=== PATIENT | female | born 1995 | race Caucasian/White ===

== ENCOUNTER 2019-10-16 16:24 | Emergency (ER) | payer OTHER, SELFPAY ==
[2019-10-16] MEDS ORDERED: HYDROCODONE/APAP 10/325 TAB ONE (18:02)
[2019-10-16] MEDS ORDERED: CYCLOBENZAPRINE 10 MG TAB ONE (18:02)
--- NOTE | 2019-10-16 18:21 | EDPHYS ---
Physician Documentation [facility] Name: Maria E Yanes Age: 24 yrs Sex: Female : 1995 Arrival Date: 10/16/2019 Time: 16:30 Bed 30 Private MD: ED Physician Andrea Quiroz HPI: 10/16 17:52 This 24 yrs old Female presents to ER via Ambulatory with complaints of Back la1 Pain. 17:52 The patient presents with pain that is acute, with no known mechanism of injury. The la1 symptoms are located in the low back. Onset: The symptoms/episode began/occurred 2 day(s) ago. The pain radiates to the right leg. Associated signs and symptoms: Pertinent negatives: incontinence, numbness, tingling, urinary retention, weakness. The problem was sustained when lifting patient. Modifying factors: The patient symptoms are alleviated by nothing, the patient symptoms are aggravated by movement. Severity of symptoms: At their worst the symptoms were moderate. The patient has experienced similar episodes in the past. The patient has not recently seen a physician. 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 - Social history:: Smoking status: Patient/guardian denies using tobacco. - Ebola Screening: : Patient negative for fever greater than or equal to 101.5 degrees Fahrenheit, and additional compatible Ebola Virus Disease symptoms Patient denies exposure to infectious person Patient denies travel to an Ebola-affected area in the 21 days before illness onset No symptoms or risks identified at this time. ROS: 17:54 Constitutional: Negative for fever, chills, and weight loss, Eyes: Negative for injury, la1 pain, redness, and discharge, ENT: Negative for injury, pain, and discharge, Neck: Negative for injury, pain, and swelling, Cardiovascular: Negative for chest pain, palpitations, and edema, Respiratory: Negative for shortness of breath, cough, wheezing, and pleuritic chest pain, Abdomen/GI: Negative for abdominal pain, nausea, vomiting, diarrhea, and constipation, : Negative for injury, bleeding, discharge, and swelling, MS/Extremity: Negative for injury and deformity. 17:54 Back: Positive for pain at rest, pain with movement. Exam: 17:56 Constitutional: This is a well developed, well nourished patient who is awake, alert, la1 and in no acute distress. Head/Face: Normocephalic, atraumatic. Chest/axilla: Normal chest wall appearance and motion. Nontender with no deformity. No lesions are appreciated. Cardiovascular: Regular rate and rhythm with a normal S1 and S2. No gallops, murmurs, or rubs. Normal PMI, no JVD. No pulse deficits. Respiratory: Lungs have equal breath sounds bilaterally, clear to auscultation. No rales, rhonchi or wheezes noted. No increased work of breathing, no retractions or nasal flaring. Abdomen/GI: Soft, non-tender, with normal bowel sounds. No distension or tympany. No guarding or rebound. No evidence of tenderness throughout. 17:56 Back: pain, that is moderate, of the lumbar area and right low back, ROM is painful, with rotation to the left, with flexion, with extension, normal spinal alignment noted, CVA tenderness, is absent, muscle spasm, is appreciated in the right mid back and right low back, Straight leg raises: right lower extremity does not illicit pain, left lower extremity illicits pain, at 15 degrees. 18:22 Neuro: Orientation: is normal, Mentation: is normal, Memory: is normal, Cranial nerves: la1 grossly normal, Cerebellar function: is grossly normal, Motor: is normal, Sensation: is normal. Vital Signs: 16:57 BP 129 / 77; Pulse 92; Resp 18; Temp 98.2; Pulse Ox 100% on R/A; Weight 131.54 kg (R); sg Height 5 ft. 10 in. (177.80 cm); Pain 10/10; 19:02 BP 120 / 75; Pulse 90; Resp 18; Temp 98.5; Pulse Ox 100% ; dm5 16:57 Body Mass Index 41.61 (131.54 kg, 177.80 cm) MDM: 17:26 Patient medically screened. la1 18:19 Differential diagnosis: arthritis, chronic back pain, Fatigue Fracture Joint Injury. la1 Data reviewed: vital signs, nurses notes, I have discussed the patient's presentation/case with the attending Emergency Department Physician; and as a result, I will discharge patient. Data interpreted: Pulse oximetry: on room air is 100 %. Interpretation: normal. Counseling: I had a detailed discussion with the patient and/or guardian regarding: the historical points, exam findings, and any diagnostic results supporting the discharge/admit diagnosis, the need for outpatient follow up, a family practitioner, a neurologist. ED course: pt ambulatory, no weakness, numbness, or tingling. no saddle anesthesia, urinary retention.. Administered Medications: 18:06 Drug: [place] 10 mg-325 mg 1 tabs Route: PO; iw 18:06 Drug: Flexeril 10 mg Route: PO; iw Disposition: 10/17 08:51 Co-signature as Attending Physician, Andrea Quiroz MD I agree with the assessment and kdr plan of care. Disposition: 10/16/19 18:20 Discharged to Home. Impression: Low back pain. - Condition is Stable. - Discharge Instructions: Back Pain, Adult, Back Pain, Adult, Cauf-ot-[id number], Back Exercises, [id number]. - Prescriptions for Tylenol- Codeine #3 300-30 mg Oral Tablet - take 2 tablet by ORAL route every 6 hours As needed; 6 tablet. Cyclobenzaprine 10 mg Oral Tablet - take 1 tablet by ORAL route every 8 hours As needed; 20 tablet. - Work release form, Medication Reconciliation Form, Thank You Letter form. - Follow up: Private Physician; When: 2 - 3 days; Reason: Recheck today's complaints, Re-evaluation by your physician. - Problem is new. - Symptoms are unchanged. Signatures: Divine Venegas, OTTO RN dm5 Stephen Wilson RN RN Andrea Quiroz MD MD [facility] Radha River RN RN iw Perez Osborne, SURGICAL GARMENT INSPECTOR-C SURGICAL GARMENT INSPECTOR-Cla1 Corrections: (The following items were deleted from the chart) 10/16 19:03 18:20 10/16/2019 18:20 Discharged to Home. Impression: Low back pain. Condition is dm5 Stable. Forms are Medication Reconciliation Form, Thank You Letter, Antibiotic Education, Prescription Opioid Use. Follow up: Private Physician; When: 2 - 3 days; Reason: Recheck today's complaints, Re-evaluation by your physician. Problem is new. Symptoms are unchanged. la1
--- NOTE | 2019-10-16 18:21 | ER ---
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 Transition of care: patient was not received from another setting of care. Onset of symptoms was October 16, 2019. Risk Assessment: Do you want to hurt yourself or someone else? Patient reports no desire to harm self or others. Initial Sepsis Screen: Does the patient meet any 2 criteria? No. Patient's initial sepsis screen is negative. Does the patient have a suspected source of infection? No. Patient's initial sepsis screen is negative. Care prior to arrival: None. 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 - Social history:: Smoking status: Patient/guardian denies using tobacco. - Ebola Screening: : Patient negative for fever greater than or equal to 101.5 degrees Fahrenheit, and additional compatible Ebola Virus Disease symptoms Patient denies exposure to infectious person Patient denies travel to an Ebola-affected area in the 21 days before illness onset No symptoms or risks identified at this time. Screenin:45 Abuse screen: Denies threats or abuse. Denies injuries from another. Nutritional iw screening: No deficits noted. Tuberculosis screening: No symptoms or risk factors identified. Fall Risk None identified. Assessment: 17:44 General: Appears uncomfortable, Behavior is calm, cooperative. Pain: Complains of pain iw in back and right leg. Neuro: Level of Consciousness is awake, alert, obeys commands, Oriented to person, place, time, situation, Moves all extremities. Full function. Cardiovascular: Patient's skin is warm and dry. Respiratory: Respiratory effort is even, unlabored, Respiratory pattern is regular, symmetrical. GI: No signs and/or symptoms were reported involving the gastrointestinal system. Derm: Skin is intact, is healthy with good turgor. Musculoskeletal: Range of motion:. Vital Signs: 16:57 BP 129 / 77; Pulse 92; Resp 18; Temp 98.2; Pulse Ox 100% on R/A; Weight 131.54 kg (R); sg Height 5 ft. 10 in. (177.80 cm); Pain 10/10; 19:02 BP 120 / 75; Pulse 90; Resp 18; Temp 98.5; Pulse Ox 100% ; dm5 16:57 Body Mass Index 41.61 (131.54 kg, 177.80 cm) sg ED Course: 16:30 Patient arrived in ED. mr 16:51 Arm band placed on. sg 16:57 Triage completed. sg 17:26 Radha River, OTTO is Primary Nurse. iw 17:26 Perez Osborne FNP-C is PSYCHIATRICP. la1 17:26 Andrea Quiroz MD is Attending Physician. la1 17:45 No provider procedures requiring assistance completed. iw 18:30 Awaiting physician signature for presecription. dm5 19:01 Patient did not have IV access during this emergency room visit. dm5 19:02 Patient has correct armband on for positive identification. dm5 Administered Medications: 18:06 Drug: [place] 10 mg-325 mg 1 tabs Route: PO; iw 18:06 Drug: Flexeril 10 mg Route: PO; iw Outcome: 18:20 Discharge ordered by . la1 19:00 Discharged to home ambulatory. dm5 19:00 Condition: good 19:00 Discharge instructions given to patient, Instructed on discharge instructions, follow up and referral plans. medication usage, Demonstrated understanding of instructions, follow-up care, medications, Prescriptions given X 2. 19:03 Patient left the ED. dm5 Signatures: Divine Venegas RN RN dm5 Gay, Steven, RN RN JuventinoYulia mr Radha River RN RN Perez Osborne FNP-C [place] PROGRAM DIRECTOR-[facility] Corrections: (The following items were deleted from the chart) 19:03 19:02 BP 120 / 75; Pulse 90bpm; Resp 18bpm; Pulse Ox 98.5%; Temp 100F; dm5 dm5
[2019-10-16 22:32] VITALS: O2SAT 100
[2019-10-16 22:33] VITALS: BP 120/75; TEMP 98.5
== END 2019-10-16 19:03 | disposition home or self-care (01) ==
LOC: ER 16:24
DX: M54.5 Low back pain (principal)
CPT/HCPCS: 99283